=== PATIENT | male | born 1995 | race Two or more races ===

== ENCOUNTER 2022-11-26 02:34 | Emergency (ER) | payer SELFPAY ==
[~2022-11-26] VITALS: Ht 175.3 cm; Wt 81.6 kg
[2022-11-26 02:35] VITALS: BP 173/108
--- NOTE | 2022-11-26 02:35 | NUR ---
TARYN MASON TO CHAIR B
[2022-11-26 03:20] VITALS: BP 149/99
--- NOTE | 2022-11-26 03:20 | NUR ---
PATIENT BIB [facility] [employer]. PATIENT EXAMINED BY DR. ODONNELL. PATIENT MEDICALLY CLEARED AND RELEASED IN CUSTODY IN STABLE CONDITION. ORIGINAL PRE-BOOK FORM GIVEN TO OFFICER NIKKI [id number]. Patient discharged with v/s stable. Written and verbal after care instructions given and explained. Patient verbalized understanding. Police with in custody. All questions addressed prior to discharge. Advised to follow up with PMD.
== END 2022-11-26 03:20 ==
LOC: MED 02:34
DX: I10 Essential (primary) hypertension (principal); F12.90 Cannabis use, unspecified, uncomplicated; Z02.89 Encounter for other administrative examinations
CPT/HCPCS: 99283